=== PATIENT | male | born 1975 | race Caucasian/White ===

== ENCOUNTER 2017-02-12 07:46 | Day surgery (SDC) | payer BC ==
[~2017-02-12 07:46] MED LIST: XYLOCAINE 1 % (PLAIN) ONE
[2017-02-12] MEDS ORDERED: D5 LR 1000 ML 1,000 ML IV ONE (08:01)
[2017-02-12] MEDS ORDERED: NS 50 ML IV + SPIKE MINIBAG* 50 ML IV ONE (08:02)
[2017-02-12] MEDS ORDERED: ANCEF VIAL 1 GM ONE (08:02)
[2017-02-12 09:44] VITALS: BP 139/74
== END 2017-02-12 09:25 | disposition home or self-care (01) ==
LOC: SURG1 07:46
PROVIDERS: ATTEND Specialist
PROC: 0LN70ZZ Release Right Hand Tendon, Open Approach (ICD-10-PCS; principal; 2017-02-12 08:30)
DX: M65.341 Trigger finger, right ring finger (principal)
CPT/HCPCS: A4222; J0690; J2001; J7120

== ENCOUNTER 2017-02-28 10:30 | Day surgery (SDC) | payer BC ==
[~2017-02-28 10:30] MED LIST changes: +ANCEF VIAL 1 GM ONE; +D5 LR 1000 ML 1,000 ML IV ONE; +FENTANYL INJ 100 mcg ONE; +NS 50 ML IV + SPIKE MINIBAG* 50 ML IV ONE; -XYLOCAINE 1 % (PLAIN) ONE
[2017-02-28] MEDS ORDERED: NS IRRIGATION 1000 ML 1,000 ML with BACITRACIN VIAL 50,000 UNT IR ONE ×2 (11:12)
[2017-02-28] MEDS ORDERED: FENTANYL INJ 100 mcg ONE (11:44)
[2017-02-28] MEDS ORDERED: BENADRYL INJ 50 MG VIAL IVP PRN (12:08)
[2017-02-28] MEDS ORDERED: REGLAN INJ 10 MG VIAL IVP PRN (12:08)
[2017-02-28] MEDS ORDERED: PHENERGAN INJ 25 MG IVP PRN (12:08)
[2017-02-28] MEDS ORDERED: ZOFRAN INJ 4 MG VIAL IVP PRN (12:08)
[2017-02-28] MEDS: DILAUDID INJ IVP PRN ×3 (12:10→12:54)
[2017-02-28] MEDS ORDERED: NORCO 5/325 MG TAB ONE (13:13)
[2017-02-28 13:40] VITALS: BP 132/84
[2017-02-28] MEDS ORDERED: REGLAN INJ 10 MG VIAL ONE (15:48)
[2017-02-28] MEDS ORDERED: DIPRIVAN VIAL ONE (15:48)
[2017-02-28] MEDS ORDERED: ULTANE GAS IN ONE (15:48)
[2017-02-28] MEDS ORDERED: ZOFRAN INJ 4 MG VIAL ONE (15:48)
[2017-02-28] MEDS ORDERED: VERSED ONE (15:48)
== END 2017-02-28 13:30 | disposition home or self-care (01) | DRG 514 ==
LOC: SURG1 10:30
PROVIDERS: ATTEND Specialist
PROC: 0JDJ0ZZ Extraction of Right Hand Subcutaneous Tissue and Fascia, Open Approach (ICD-10-PCS; principal; 2017-02-28 10:30)
DX: M65.141 Other infective (teno)synovitis, right hand (principal); B95.7 Other staphylococcus as the cause of diseases classified elsewhere
CPT/HCPCS: 87070; 87075; 87077; 87186; 87205; A4222; J0690; J1170; J2250; J2405; J2765; J3010; J3490; J7120

== ENCOUNTER → 2018-02-12 | Outpatient (CLI) | payer BC ==
--- NOTE | 2018-02-12 10:29 | RAD ---
Three views of the left knee. Indication: Left knee pain for 2 months Findings: No acute fracture or dislocation within the left knee. Small suprapatellar joint effusion. There is suspected mild chondromalacia patella as well. The medial and lateral femorotibial compartme nts demonstrate no degenerative change. No localizing soft tissue swelling. 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 Otherwise no radi ographic abnormality within the left knee. Reported By:
== END ==
LOC: RAD 09:31
PROVIDERS: ATTEND Nurse Practitioner Family
DX: M25.562 Pain in left knee (principal)
CPT/HCPCS: 73564

== ENCOUNTER → 2018-02-15 | Outpatient (CLI) | payer BC ==
--- NOTE | 2018-02-15 15:08 | MRI ---
History: Knee Pain. Soft tissue lesion on left knee. NON-CONTRAST MRI EXAM OF THE LEFT KNEE JOINT. Technique: Multi-sequence and multiplanar MRI images of the left knee joint were performed at 1.5 carsia la using PD, T1, and T2 sequencing without IV contrast. Comparison: 02/12/2018. FINDINGS: The MR examination demonstrates no appreciable patellofemoral or femorotibial articular car tilage loss nor full-thickness cartilage loss in the weight-bearing sector of the medial or lateral k nee compartments. No high-grade osteochondral defects are seen. There is no MR evidence for osteochon dritis dessicans. The PCL is intact, but there is a low-grade chronic strain of the otherwise intact ACL. The lateral meniscus is intact, but does show fraying of the anterior horn of the lateral menisc us. No displaced medial meniscal tear is seen, either. The IT band and posterior-lateral corner struc tures are unremarkable. The lateral collateral ligament complex presents no focal abnormalities. The MCL is intact. The extensor mechanism of the knee is intact. There is a trace knee joint fluid withou t visible loose bodies seen. Examination of the bone marrow demonstrates no evidence of an aggressive bone marrow lesion. There is no altered bone marrow signal or significant degenerative disease obser aury. No other region of abnormal bone marrow signal is seen to suggest an acute fracture, bone marrow contusion, or aggressive marrow lesion. No concerning soft tissue masses are seen. No other bony or soft tissue abnormalities are seen. No susceptibility artifact is seen to suggest a foreign body. IMPRESSION: Low-grade, chronic-appearing, ACL strain without ACL tear observed. Proximal patellar tendinosis. No other significant knee joint injuries seen. Soft tissue thickening of the lateral aspect of the gastrocnemius fascia accounts for the palpable ab normality without underlying knee mass lesion appreciated. Reported By:
== END ==
LOC: RAD 12:51
PROVIDERS: ATTEND Nurse Practitioner Family
DX: M25.562 Pain in left knee (principal); M17.12 Unilateral primary osteoarthritis, left knee
CPT/HCPCS: 73721